=== PATIENT | female | born 1950 | race Caucasian/White ===

== ENCOUNTER 2016-08-23 13:48 | Emergency (ER) | payer BC, MEDICAID ==
[~2016-08-23] VITALS: Ht 157.5 cm; Wt 70.3 kg
[2016-08-23 14:00] VITALS: BP_SYST 128
[2016-08-23] MEDS ORDERED: KETOROLAC TROMETHAMINE 60 MG/2 ML VIAL IM ONE (14:45)
[2016-08-23 16:40] VITALS: BP_SYST 133
== END 2016-08-23 16:40 | disposition home or self-care (01) ==
LOC: SED 13:48
DX: S16.1XXA Strain of muscle, fascia and tendon at neck level, initial encounter (principal); S39.012A Strain of muscle, fascia and tendon of lower back, initial encounter; M79.602 Pain in left arm; I10 Essential (primary) hypertension; Z88.0 Allergy status to penicillin; Z88.5 Allergy status to narcotic agent; Z98.51 Tubal ligation status; Z88.1 Allergy status to other antibiotic agents; V89.2XXA Person injured in unspecified motor-vehicle accident, traffic, initial encounter; Y93.89 Activity, other specified; Y92.89 Other specified places as the place of occurrence of the external cause; Y99.8 Other external cause status
CPT/HCPCS: 71010; 72050; 72131; 73060; 99284; J1885

== ENCOUNTER 2017-06-19 10:05 | Emergency (ER) | payer BC, MEDICAID ==
[~2017-06-19] VITALS: Ht 160 cm; Wt 70.3 kg
[2017-06-19 10:32] VITALS: BP_SYST 134
--- NOTE | 2017-06-19 10:35 | NUR ---
Pt placed to ER waiting room in stable condition.
--- NOTE | 2017-06-19 12:50 | NUR ---
Placed in room 4. To gown for exam. Side rails up.
--- NOTE | 2017-06-19 13:10 | NUR ---
Pt presents to ER c/o sinus pressure pain 5/10 and slight dizziness. Pt states taking Claritin at home but does not relieve symptoms. Pt denies N/V/D/SOB/CHEST PAIN. Pt in no acute respiratory distress, speaking full sentences, AOX4.
--- NOTE | 2017-06-19 13:15 | NUR ---
ER at bedside examining patient.
[2017-06-19 13:50] VITALS: BP_SYST 150
--- NOTE | 2017-06-19 13:50 | NUR ---
Patient given written and verbal discharge instructions and verbalizes understanding. ER MD discussed with patient the results and treatment provided. Patient in stable condition. ID arm band removed. Rx of Zari, Motrin, Augmentin given. Patient educated on pain management and to follow up with PMD. Pain Scale 4/10. Opportunity for questions provided and answered. Medication side effect fact sheet provided.
== END 2017-06-19 13:50 | disposition home or self-care (01) ==
LOC: SED 10:05
DX: J32.9 Chronic sinusitis, unspecified (principal); I10 Essential (primary) hypertension; Z88.0 Allergy status to penicillin; Z88.5 Allergy status to narcotic agent; Z88.1 Allergy status to other antibiotic agents
CPT/HCPCS: 99283